=== PATIENT | male | born 1950 | race Caucasian/White ===

== ENCOUNTER 2023-11-26 14:35 | Emergency (ER) | payer BC, MEDICARE ==
[~2023-11-26] VITALS: Ht 185.4 cm; Wt 88.8 kg
[~2023-11-26 14:35] MED LIST: FAMO-1 PO; MULT-785 PO; Prednisone PO; TADA5TAB2 PO
[2023-11-26 14:55] VITALS: TEMP 97.6
--- NOTE | 2023-11-26 15:47 | NUR ---
VASCULAR IS ON THEIR WAY IN
[2023-11-26 16:18] LABS: BASOPHILS # (AUTO) 0.1 X10'3 (0-0.2); BASOPHILS % (AUTO) 1.1 % (0-1); EOSINOPHILS # (AUTO) 0.4 X10'3 (0-0.9); EOSINOPHILS % (AUTO) 4.9 % (0-6); HEMATOCRIT 43.9 % (42.0-52.0); HEMOGLOBIN 14.5 g/dl (14.0-17.9); LYMPHOCYTES # (AUTO) 1.2 X10'3 (1.1-4.8); LYMPHOCYTES % (AUTO) 14.9 % (21-51); MEAN CORPUSCULAR HEMOGLOBIN 29.4 PG (27.0-31.0); MEAN CORPUSCULAR VOLUME 89.1 FL (78-98); MONOCYTES # (AUTO) 0.5 X10'3 (0-0.9); MONOCYTES % (AUTO) 6.3 % (2-12); NEUTROPHILS # (AUTO) 5.7 X10'3 (1.8-7.7); NEUTROPHILS % (AUTO) 72.8 % (42-75); PLATELET COUNT 246 X10'3 (140-440); RED BLOOD COUNT 4.93 X10'6 (4.70-6.10); WHITE BLOOD COUNT 7.8 X10'3 (4.5-11.0)
[2023-11-26 16:25] LABS: PROTHROMBIN TIME 10.4 SECONDS (9.0-12.0)
[2023-11-26 16:55] VITALS: BP 187/120; PULSE 96; RESP 16; O2SAT 96
== END 2023-11-26 17:30 | disposition home or self-care (01) ==
LOC: ER 14:35
DX: R60.0 Localized edema (principal); Z88.8 Allergy status to other drugs, medicaments and biological substances; Z79.899 Other long term (current) drug therapy; Z98.890 Other specified postprocedural states
CPT/HCPCS: 36415; 85025; 85610; 93971; 99284